=== PATIENT | female | born 1995 | race Two or more races ===

== ENCOUNTER 2024-09-08 11:19 | Outpatient (CLI) | payer OTHER | END 2024-09-08 11:21 | disposition home or self-care (01) | LOC: PRENATAL 11:19 | PROVIDERS: ATTEND Obstetrics & Gynecology Maternal & Fetal Medicine | DX: O44.00 Complete placenta previa NOS or without hemorrhage, unspecified trimester (principal); Z3A.20 20 weeks gestation of pregnancy ==

== ENCOUNTER 2024-09-16 03:29 | Inpatient (IN) | payer OTHER ==
[~2024-09-16] VITALS: Ht 154.9 cm; Wt 57.2 kg
[2024-09-16] MEDS ORDERED: MORPHINE SULFATE 4 MG/ML VIAL IV STA (04:00)
[2024-09-16] MEDS ORDERED: SODIUM CHLORIDE 0.45 % 1,000 ML IV ONE (04:15)
[2024-09-16 04:36] LABS: URINE APPEARANCE Clear; URINE BILIRRUBIN Negative (NEGATIVE); URINE BLOOD Negative; URINE COLOR Yellow; URINE GLUCOSE Negative (NEGATIVE); URINE KETONE Negative (NEGATIVE); URINE LEUKOCYTE Trace; URINE NITRATE Negative; URINE PROTEIN Negative (NEGATIVE); URINE UROBILINOGEN 0.2 E.U./dl
[2024-09-16 04:38] LABS: HEMATOCRIT 36.5 % (36.0-45.00); HEMOGLOBIN 12.2 g/dL (12.0-15.00); MEAN CELL VOLUME 85.4 fL (80.00-100.00); MEAN CORPUSCULAR HEMOGLOBIN 28.5 pg (27.00-32.0); MEAN CORPUSCULAR HGB CONC 33.4 g/dl (32.0-36.0); PLATELET COUNT 194 K/uL (150-450); RED BLOOD COUNT 4.28 M/uL (4.00-6.00); RED CELL DISTRIBUTION WIDTH 15.1 % (11.5-14.5)
[2024-09-16 04:39] LABS: URINE BACTERIA 540.9 uL (0.0-1933); URINE EPITHELIAL CELLS 9.3 uL (0.0-38.8); URINE RBC 2.9 uL (0.0-20.8); URINE WBC 22.4 uL (0.0-23.2)
[2024-09-16 04:56] LABS: CALCIUM 9.5 mg/dL (8.5-10.1); CREATININE SERUM 0.58 mg/dL (0.55-1.02); GFR 124.7; POTASSIUM 4.4 mEq/L (3.5-5.1)
[2024-09-16] MEDS ORDERED: AMPICILLIN SODIUM 2,000 MG in 0.9 % SODIUM CHLORIDE 100 ML IV SCH (06:40)
[2024-09-16] MEDS ORDERED: RINGERS SOLUTION,LACTATED 1,000 ML IV ONE (06:45)
[2024-09-16 11:34] VITALS: BP 105/69; O2SAT 99
[2024-09-16 12:43] VITALS: BP 107/66
[2024-09-16 12:54] VITALS: BP 105/69
[2024-09-16] MEDS ORDERED: NAPROXEN 500 MG TABLET PO ONE (13:44)
[2024-09-16] MEDS ORDERED: ACETAMINOPHEN WITH CODEINE 1 UDTAB TABLET PO PRN (14:15)
[2024-09-16 15:50] VITALS: BP 94/61
[2024-09-16] MEDS ORDERED: NAPROXEN 500 MG TABLET PO SCH (17:00)
[2024-09-17 08:00] VITALS: BP 100/67
[2024-09-17] MEDS ORDERED: CEFTRIAXONE SODIUM 1,000 MG VIAL IV SCH (09:00)
[2024-09-17 16:45] VITALS: BP 99/61
[2024-09-17] MEDS ORDERED: FAMOtidine 20 MG TABLET PO SCH (21:00)
[2024-09-18 00:08] VITALS: BP 98/63
[2024-09-18 09:03] VITALS: BP 96/60
[2024-09-18 16:00] VITALS: BP 103/63
[2024-09-19] VITALS: BP 106/82
[2024-09-19] MEDS ORDERED: ACETAMINOPHEN WITH CODEINE 1 UDTAB TABLET PO PRN (01:45)
[2024-09-19 08:00] VITALS: BP 100/62
[2024-09-19 10:18] LABS: HEMATOCRIT 35.7 % (36.0-45.00); HEMOGLOBIN 11.8 g/dL (12.0-15.00); MEAN CELL VOLUME 87.3 fL (80.00-100.00); MEAN CORPUSCULAR HEMOGLOBIN 28.8 pg (27.00-32.0); PLATELET COUNT 157 K/uL (150-450); RED BLOOD COUNT 4.08 M/uL (4.00-6.00); RED CELL DISTRIBUTION WIDTH 14.9 % (11.5-14.5)
[2024-09-19 10:27] LABS: CREATININE SERUM 0.56 mg/dL (0.55-1.02); GFR 129.86; POTASSIUM 4.37 mEq/L (3.5-5.1)
[2024-09-19 16:00] VITALS: BP 97/61
[2024-09-19] MEDS ORDERED: CEFTRIAXONE SODIUM 2,000 MG VIAL ONE (18:52)
[2024-09-20] VITALS: BP 115/73
[2024-09-20 07:40] VITALS: BP 93/60
[2024-09-20] MEDS ORDERED: ACETAMINOPHEN 325 MG TABLET PO PRN (08:45)
[2024-09-20 17:00] VITALS: BP 108/65
[2024-09-21 00:24] VITALS: BP 95/55
[2024-09-21 08:08] VITALS: BP 99/62
[2024-09-21] MEDS ORDERED: METAXALONE400 MG PO (08:49)
== END 2024-09-21 09:49 | disposition home or self-care (01) | DRG 831 ==
LOC: ER 03:30 → OB/GYN 06:41 → SEC-K 06:41 → OB/GYN 10:21
PROVIDERS: General Practice; Obstetrics & Gynecology; ADMIT Obstetrics & Gynecology; ATTEND Obstetrics & Gynecology
PROC: 4A1HXCZ Monitoring of Products of Conception, Cardiac Rate, External Approach (ICD-10-PCS; principal; 2024-09-16)
PROC: BT43ZZZ Ultrasonography of Bilateral Kidneys (ICD-10-PCS; 2024-09-16)
PROC: BY4CZZZ Ultrasonography of Second Trimester, Single Fetus (ICD-10-PCS; 2024-09-20)
PROC: BU4CZZZ Ultrasonography of Uterus and Ovaries (ICD-10-PCS; 2024-09-20)
DX: O23.02 Infections of kidney in pregnancy, second trimester (principal); O60.02 Preterm labor without delivery, second trimester; O98.912 Unspecified maternal infectious and parasitic disease complicating pregnancy, second trimester; O26.892 Other specified pregnancy related conditions, second trimester; R10.2 Pelvic and perineal pain; O26.842 Uterine size-date discrepancy, second trimester; R10.9 Unspecified abdominal pain; Z3A.20 20 weeks gestation of pregnancy

== ENCOUNTER → 2024-12-06 14:16 | Outpatient (CLI) | payer OTHER ==
[~2024-12-06 14:16] MED LIST: METAXALONE400 MG PO
== END | disposition home or self-care (01) ==
LOC: PRENATAL 14:16
PROVIDERS: ATTEND Obstetrics & Gynecology Maternal & Fetal Medicine
DX: O26.849 Uterine size-date discrepancy, unspecified trimester (principal); O36.8199 Decreased fetal movements, unspecified trimester, other fetus; Z3A.33 33 weeks gestation of pregnancy